=== PATIENT | male | born 1970 ===

== ENCOUNTER 2016-12-17 21:11 | Observation (INO) | payer MEDICAID ==
[2016-12-17 21:17] VITALS: BP 118/66; PULSE 66; RESP 16; O2SAT 97
--- NOTE | 2016-12-17 22:36 | ED PDOC ---
HPI: Psych/Substance Abuse Time Seen by Provider: 12/17/16 21:43 Chief Complaint (Nursing): Alcohol Ingestion Chief Complaint (Provider): Alcohol Intoxication ED Caveat: Intoxicated History Per: Patient History/Exam Limitations: intoxication Current Symptoms Are (Timing): Still Present Ingestion Of Substance: Alcohol (4 shots of liquor) Modifying Factor(s): Alcohol Additional Complaint(s): Stone Larson is a 46 year old male, with a past medical history of depression and anxiety, who presents to the emergency department with complaints of alcohol intoxication. Patient reportedly states that he feels well despite having had too much to drink tonight (4 shots of liquor). Denies injury. HPI/ ROS are limited secondary to patient's alcohol intoxication. PMD: none specified Past Medical History Reviewed: Historical Data, Nursing Documentation, Vital Signs Vital Signs: Last Vital Signs Temp Pulse 66 12/17/16 21:14 Resp 16 12/17/16 21:14 BP 118/66 12/17/16 21:14 Pulse Ox 97 12/17/16 21:14 - Medical History PMH: Anxiety, Depression, Gastritis Denies: Diabetes, Hepatitis, HIV, HTN, Chronic Kidney Disease, Seizures, Sexually Transmitted Disease - Family History Family History: States: Unknown Family Hx - Social History Current smoker - smoking cessation education provided: Yes Drugs: Opiates (IVDA heroin) - Immunization History Hx Tetanus Toxoid Vaccination: No Hx Influenza Vaccination: No Hx Pneumococcal Vaccination: No - Home Medications Home Medications: Ambulatory Orders Medication Instructions Recorded Methadone [Methadose] 40 mg PO DAILY 01/01/16 Acetaminophen [Tylenol 325mg tab] 650 mg PO DAILY PRN 10/12/16 Meloxicam [Mobic] 15 mg PO DAILY 10/12/16 - Allergies Allergies/Adverse Reactions: Allergies Allergy/AdvReac Type Severity Reaction Status Date / Time No Known Allergies Allergy Verified 12/17/16 21:14 Review of Systems Review Of Systems: ROS cannot be obtained secondary to pt's inabilty to answer questions. Physical Exam - Reviewed Nursing Documentation Reviewed: Yes Vital Signs Reviewed: Yes - Physical Exam Appears: Positive for: No Acute Distress Head Exam: Positive for: ATRAUMATIC, NORMOCEPHALIC Skin: Positive for: Normal Color, Warm, Dry Eye Exam: Positive for: Normal appearance, PERRL Neck: Positive for: Normal, Painless ROM Cardiovascular/Chest: Positive for: Regular Rate, Rhythm. Negative for: Murmur Respiratory: Positive for: Normal Breath Sounds. Negative for: Respiratory Distress Extremity: Positive for: Normal ROM. Negative for: Tenderness Neurologic/Psych: Positive for: Alert (Arousable to verbal and physical stimuli) . Negative for: Oriented (Acute ETOH intoxication w/ slurred speech) - ECG O2 Sat by Pulse Oximetry: 97 Pulse Ox Interpretation: Normal Medical Decision Making Medical Decision Makin:43 Initial Impression: Alcohol intoxication Initial Plan: * Alcohol Serum * Accucheck * Reevaluation 22:11 Patient will be placed within ED Observation secondary to alcohol intoxication. Pending clinical sobriety. See Obs note for further updates. Scribe Attestation: Documented by Sam Booker, training under Madeleine Avila, acting as a scribe for Cheko Muniz MD. Provider Scribe Attestation: All medical record entries made by the Scribe were at my direction and personally dictated by me. I have reviewed the chart and agree that the record accurately reflects my personal performance of the history, physical exam, medical decision making, and the department course for this patient. I have also personally directed, reviewed, and agree with the discharge instructions and disposition. ED OBSERVATION Date of observation admission: 12/17/16 Time of observation admission: 22:11 - Observation admission statement Patient is being placed in observation because:: Alcohol intoxication - Goals of Observation Goals of observation are:: Pending clinical sobriety, reevaluation, and final disposition. - Progress Note Progress Note: 12/18/16 0140: Pt. is awake and alert, walking with a steady gait. Will d/c home. Disposition - Clinical Impression Clinical Impression: Alcohol abuse - Disposition Disposition Time: 01:40 Condition: STABLE
== END 2016-12-18 00:48 | disposition home or self-care (01) ==
LOC: H.ER 21:11 → H.EROBSV 22:11
PROVIDERS: ADMIT Emergency Medicine; ATTEND Emergency Medicine
DX: F10.129 Alcohol abuse with intoxication, unspecified (principal); Y90.8 Blood alcohol level of 240 mg/100 ml or more; F17.200 Nicotine dependence, unspecified, uncomplicated; F41.9 Anxiety disorder, unspecified; F32.9 Major depressive disorder, single episode, unspecified; K29.70 Gastritis, unspecified, without bleeding